=== PATIENT | male | born 1930 | race Caucasian/White ===

== ENCOUNTER 2017-05-02 06:05 | Day surgery (SDC) | payer MEDICARE, BC ==
--- NOTE | 2017-04-17 16:46 | HP ---
CC: Juan Malone MD. * PREOPERATIVE HISTORY AND PHYSICAL: TODAY'S DATE: 04/17/17 DATE OF ADMISSION: Patient is scheduled for same-day surgery admission by Dr. Gutierrez on 05/02/17. ATTENDING SURGEON: Raúl Gutierrez MD * (dictated by Ar Morales NP) CHIEF COMPLAINT: Left inguinal hernia. HISTORY OF PRESENT ILLNESS: The patient is an 87-year-old male referred to Dr. Gutierrez from Dr. Juan Malone for evaluation of a left inguinal hernia. The patient has noticed a bulge for a couple of years, but it has gradually gotten larger. It is not particularly painful and he denies any signs or symptoms to suggest incarceration or strangulation. He denies any dysuria and is having regular formed bowel movements. He is status post open right inguinal hernia repair by Dr. Cardoso over 30 years ago. He is reasonably fit and active for his age. Dr. Gutierrez examined the patient and notes some moderately large left inguinal hernia, which is soft and reducible. Dr. Gutierrez has recommended open left inguinal hernia repair with mesh as a same-day surgery procedure and has described the nature of the surgical procedure, the rationale for the procedure , the relevant risks and benefits, and today I reviewed the expected post- operative care and recovery. The patient has had a chance to ask questions and stated that he understands the information and is satisfied with the answers given to his questions. He will sign surgical consent on the day of surgery. PAST MEDICAL HISTORY: Hypertension; age related macular degeneration, right eye ; osteoarthritis of right knee joint; pyelonephritis and prostatitis in 2013 with associated sepsis; premature atrial contractions on EKG. PAST SURGICAL HISTORY: Open right inguinal hernia repair over 30 years ago; bilateral cataract extractions. MEDICATIONS: 1. Lisinopril/hydrochlorothiazide 10/12.5 mg, take 1 tablet p.o. daily. 2. PreserVision AREDS 2 tablets daily. ALLERGIES: Possible PENICILLIN allergy, unspecified reactions. SOCIAL HISTORY: He is ; he quit smoking many years ago; he is a retired drafting electrical systems designer; he rarely drinks alcohol and denies the use of other substances. FAMILY HISTORY: Father of natural causes, age 95. Mother natural causes, age 87. REVIEW OF SYSTEMS: Constitutional: Denies fevers, chills, excessive fatigue or weight loss. Endocrine: No diabetes or thyroid disease. Hematologic: No easy bruising or bleeding. No history of blood transfusions. Respiratory: No dyspnea on exertion. No chronic cough. Cardiovascular: No anginal chest pain or palpitations. Gastrointestinal: No nausea, vomiting, diarrhea or chronic constipation. No change in bowel habits. Genitourinary: No current dysuria. Past history of pyelonephritis and prostatitis 2014 associated with sepsis; serum creatinine 03/08/17 is 1.35 and we will repeat this serum creatinine with his preadmission testing today. Musculoskeletal: Osteoarthritis, right knee joint. Neurologic: No headache, blurred vision or areas of focal weakness. PHYSICAL EXAMINATION GENERAL SURVEY: The patient is an 87-year-old male, well developed, well nourished in no acute distress. VITAL SIGNS: Height 67 inches, weight 147 pounds, body mass index 23. Blood pressure 132/60, pulse 66 and regular, respiratory rate 18, temperature 97.7 tympanic. HEENT: Benign. NECK: Supple. No cervical lymphadenopathy. LUNGS: Breath sounds bilaterally clear and equal. HEART: Regular rate and rhythm. No murmurs or rubs appreciated. BACK: No CVA tenderness. ABDOMEN: Active bowel sounds. Soft and nondistended. Well-healed right inguinal surgical scar. Inguinal exam is done by Dr. Gutierrez revealed a moderately large left inguinal hernia, soft and reducible. Nontender. Right inguinal hernia repair and intact. GENITALIA: Deferred. RECTAL: Deferred EXTREMITIES: Warm without edema or skin ulcerations. NEUROLOGIC: Alert and oriented x3. Steady gait. SKIN: Warm, dry and intact. IMPRESSION: Left inguinal hernia. PLAN: Same-day surgery admission to Dr. Gutierrez service on , 05/02/17, for open repair of left inguinal hernia with mesh. AR MORALES NP [id number]/[facility] #: [id number] JOANIE
[~2017-05-02 06:05] MED LIST: Buffered Lidocaine 0.9% SYRIN* 5 ML/SYR SYRINGE INTRADERM ONE; Dexamethasone IV* 4 MG/ML 1 ML (4 MG) IV SLOW PU ONE; Famotidine IV* 10 MG/ML 2 ML (20 mg) IV ONE
[2017-05-02] MEDS ORDERED: Dexamethasone IV* 4 MG/ML 1 ML (4 MG) ONE (06:49)
[2017-05-02] MEDS ORDERED: Famotidine IV* 10 MG/ML 2 ML (20 mg) ONE (06:49)
[2017-05-02] MEDS ORDERED: Buffered Lidocaine 0.9% SYRIN* 5 ML/SYR SYRINGE ONE (06:50)
[2017-05-02] MEDS ORDERED: Clindamycin 900 MG IVPREMIX(* 900 MG/50 ML SDV IV ONE (06:50)
[2017-05-02] MEDS ORDERED: Propofol* 10 MG/ML 20 ML BTL IV PUSH ONE (07:25)
[2017-05-02] MEDS ORDERED: Ketorolac INJ* 30 MG/ML 1 ML VIAL ONE (07:25)
[2017-05-02] MEDS ORDERED: Midazolam* 1 MG/ML 2 ML VIAL (2 MG) ONE (07:25)
[2017-05-02] MEDS ORDERED: fentaNYL* 50 MCG/ML 2 ML VIAL (100 MCG VIAL) ONE (07:25)
[2017-05-02] MEDS ORDERED: Ondansetron INJ* 2 MG/ML VIAL ONE (07:25)
[2017-05-02] MEDS ORDERED: Lidocaine 1% MPF wEPI 200,000* 30 ML SDV ONE (07:54)
[2017-05-02] MEDS ORDERED: Phenylephrine INJ* 10 MG/ML 1 ML VIAL (10 MG) ONE (08:13)
[2017-05-02] MEDS ORDERED: Naloxone* 0.4 MG/ML 1 ML VIAL IV PRN (08:36)
[2017-05-02] MEDS ORDERED: HYDROcodone/ACETAMIN 5-325 MG* 1 TAB PO PRN (08:38)
[2017-05-02 09:09] VITALS: BP 118/61
--- NOTE | 2017-05-03 00:31 | OP ---
CC: Dr. Juan Malone * DATE OF OPERATION: 05/02/17 - [facility] DATE OF : 34 SURGEON: Raúl Gutierrez MD VOCATIONAL INSTRUCTOR: GOYO Parikh ANESTHESIOLOGIST: Dr. Cee. ANESTHESIA: LMAC anesthesia. PRE-OP DIAGNOSIS: Left inguinal hernia. POST-OP DIAGNOSIS: Left inguinal hernia. OPERATIVE PROCEDURE: Open left inguinal hernia repair with mesh. DESCRIPTION OF PROCEDURE: The patient was supine on the operating table. After adequate intravenous sedation, compression stockings, Chey Hugger warmer and intravenous antibiotics, the left groin was prepped with antiseptic, draped in a sterile fashion. Local infiltrative anesthesia was administered and approximately 4 to 5 cm incision was created and carried down to the external oblique, which was opened in the direction of fibers. Cord structures were encircled with Ryan drain, tented upward. Direct space hernia was identified. The transversalis fascia was opened. The preperitoneal plane was developed. A Prolene hernia system PHSE patch was put into place and sutured at the tubercle and at the transverse abdominis and at the inguinal ligament. Tails were split, brought on the cord structures, tacked down laterally. External oblique was closed over top with 2-0 Vicryl, Shaila's with 3-0 Vicryl, skin with 4-0 Prolene followed by sterile dressing. He tolerated the procedure well and was brought to the Recovery in good condition. No complications, no drains. No pathologic specimens. Sponge and instrument counts were correct. Estimated blood loss 10 mL. [id number]/[facility] #: [id number] MTDD
== END 2017-05-02 09:31 | disposition home or self-care (01) ==
LOC: OR 06:05
PROVIDERS: ATTEND Surgery
DX: K40.90 Unilateral inguinal hernia, without obstruction or gangrene, not specified as recurrent (principal); I10 Essential (primary) hypertension; Z87.891 Personal history of nicotine dependence; I49.1 Atrial premature depolarization; M19.90 Unspecified osteoarthritis, unspecified site
CPT/HCPCS: C1781; J1100; J1885; J2001; J2250; J2405; J2704; J3010